=== PATIENT | female | born 1940 | race Caucasian/White ===

== ENCOUNTER 2017-09-22 06:50 | Day surgery (SDC) | payer OTHER ==
[2017-09-22] MEDS ORDERED: NS 500 ML IV 500 ML IV ONE (07:00)
[2017-09-22] MEDS ORDERED: TETRACAINE 0.5% OPHTH 1 DOSE AFFEYE ONE ×6 (07:13→09:26)
[2017-09-22] MEDS ORDERED: VIGAMOX 0.5% OPHTH 1 DOSE AFFEYE ONE ×5 (07:15→10:00)
[2017-09-22] MEDS ORDERED: PROLENSA OPHTH 1 DOSE AFFEYE ONE (07:27)
[2017-09-22] MEDS ORDERED: ALPHAGAN-P OPHTH 1 DOSE AFFEYE ONE (07:28)
[2017-09-22] MEDS ORDERED: CYCLOGYL 1% OPHTH 1 DOSE OP ONE ×3 (07:30→07:34)
[2017-09-22] MEDS ORDERED: AK-DILATE 2.5% OPHTH 1 DOSE OP ONE ×3 (07:30→07:34)
[2017-09-22] MEDS ORDERED: MYDRIACIL OPHTH 1 DOSE AFFEYE ONE ×3 (07:30→07:34)
[2017-09-22] MEDS ORDERED: VERSED ONE (08:02)
[2017-09-22] MEDS ORDERED: AK-DILATE 10% OPHTH 1 DOSE AFFEYE ONE (09:04)
[2017-09-22] MEDS ORDERED: VERSED IVP ONE ×3 (09:05→09:21)
[2017-09-22] MEDS ORDERED: BETADINE OPHTH SOLN 5% EACHEYE ONE (09:26)
[2017-09-22] MEDS ORDERED: ADRENALINE CHL INJ IJ ONE (09:39)
[2017-09-22] MEDS ORDERED: BSS OPHTH (PLAIN) 500 ML with VANCOMYCIN HCL 500 MG VIAL 25 MG, ADRENALINE CHL INJ 1 MG IR ONE ×3 (09:39)
[2017-09-22] MEDS ORDERED: XYLOCAINE-MPF 1% IJ ONE (09:39)
[2017-09-22] MEDS ORDERED: DUOVISC IO ONE (09:39)
[2017-09-22] MEDS ORDERED: VISCOAT 0.5 ML IO ONE (09:43)
[2017-09-22 10:42] VITALS: BP 157/82
== END 2017-09-22 10:25 | disposition home or self-care (01) ==
LOC: SURG1 06:50
PROVIDERS: ATTEND Ophthalmology
PROC: 08RJ3JZ Replacement of Right Lens with Synthetic Substitute, Percutaneous Approach (ICD-10-PCS; principal; 2017-09-22 07:30)
PROC: 08DJ3ZZ Extraction of Right Lens, Percutaneous Approach (ICD-10-PCS; principal; 2017-09-22 07:30)
DX: H25.11 Age-related nuclear cataract, right eye (principal); H25.011 Cortical age-related cataract, right eye; H25.041 Posterior subcapsular polar age-related cataract, right eye; H52.221 Regular astigmatism, right eye
CPT/HCPCS: A4222; A4217; J0170; J2250; J3370

== ENCOUNTER 2017-10-20 08:00 | Day surgery (SDC) | payer OTHER ==
[~2017-10-20 08:00] MED LIST: VERSED ONE
[2017-10-20] MEDS ORDERED: NS 500 ML IV 500 ML IV ONE (08:12)
[2017-10-20] MEDS ORDERED: TETRACAINE 0.5% OPHTH 1 DOSE AFFEYE ONE ×3 (08:15→11:06)
[2017-10-20] MEDS ORDERED: VIGAMOX 0.5% OPHTH 1 DOSE AFFEYE ONE ×4 (08:16→11:29)
[2017-10-20] MEDS ORDERED: PROLENSA OPHTH 1 DOSE AFFEYE ONE (08:27)
[2017-10-20] MEDS ORDERED: ALPHAGAN-P OPHTH 1 DOSE AFFEYE ONE (08:28)
[2017-10-20] MEDS ORDERED: AK-DILATE 2.5% OPHTH 1 DOSE OP ONE ×6 (08:29→08:34)
[2017-10-20] MEDS ORDERED: CYCLOGYL 1% OPHTH 1 DOSE OP ONE ×6 (08:29→08:34)
[2017-10-20] MEDS ORDERED: MYDRIACIL OPHTH 1 DOSE AFFEYE ONE ×6 (08:29→08:34)
[2017-10-20] MEDS ORDERED: FENTANYL INJ 100 mcg ONE (10:53)
[2017-10-20] MEDS ORDERED: VERSED IVP ONE (10:54)
[2017-10-20] MEDS ORDERED: AK-DILATE 10% OPHTH 1 DOSE AFFEYE ONE (11:10)
[2017-10-20] MEDS ORDERED: BETADINE OPHTH SOLN 5% EACHEYE ONE (11:17)
[2017-10-20] MEDS ORDERED: ADRENALINE CHL INJ IJ ONE ×2 (11:29→11:34)
[2017-10-20] MEDS ORDERED: DUOVISC IO ONE ×2 (11:29→11:34)
[2017-10-20] MEDS ORDERED: XYLOCAINE-MPF 1% IJ ONE ×2 (11:29→11:34)
[2017-10-20] MEDS ORDERED: BSS OPHTH (PLAIN) 500 ML with VANCOMYCIN HCL 500 MG VIAL 25 MG, ADRENALINE CHL INJ 1 MG IR ONE ×3 (11:34)
[2017-10-20 13:17] VITALS: BP 141/66
== END 2017-10-20 12:07 | disposition home or self-care (01) | DRG 117 ==
LOC: SURG1 08:00
PROVIDERS: ATTEND Ophthalmology
PROC: 08DK3ZZ Extraction of Left Lens, Percutaneous Approach (ICD-10-PCS; principal; 2017-10-20 11:15)
PROC: 08RK3JZ Replacement of Left Lens with Synthetic Substitute, Percutaneous Approach (ICD-10-PCS; 2017-10-20 11:15)
DX: H25.12 Age-related nuclear cataract, left eye (principal); H25.012 Cortical age-related cataract, left eye; H25.042 Posterior subcapsular polar age-related cataract, left eye; H52.222 Regular astigmatism, left eye
CPT/HCPCS: 99100; A4217; J0170; J2250; J3010; J3370